=== PATIENT | male | born 1945 | race Caucasian/White ===

== ENCOUNTER 2018-04-01 15:46 | Inpatient (IN) | payer OTHER ==
[~2018-04-01] VITALS: Ht 170.2 cm; Wt 88.0 kg
[2018-04-01 15:52] VITALS: BP 123/68
[2018-04-01] MEDS ORDERED: NAMENDA 5 MG TAB5 M1 PO (15:59)
[2018-04-01] MEDS ORDERED: LIPITOR 20 MG T20 M1 PO (15:59)
[2018-04-01] MEDS ORDERED: VALSARTAN-HCTZ1 EAC2 PO (15:59)
[2018-04-01] MEDS ORDERED: B12INJ IM (16:00)
[2018-04-01] MEDS ORDERED: ASPIR 8181 MG PO (16:00)
[2018-04-01 16:34] LABS: HEMATOCRIT 41.5 % (42.0-52.0); HEMOGLOBIN 13.9 gm/dL (14.0-18.0); MCH 28.6 pg (26.0-34.0); MCHC 33.4 g/dL (28.0-37.0); MCV 85.5 fL (80.0-100.0); MPV 7.1 fl. (7.2-11.1); NUCLEATED RBCS 0 /100WBC; PLATELET COUNT* 330 thou/uL (150-400); RBC 4.85 mil/uL (4.50-6.00); RDW-CV 14.4 % (10.5-14.5); WBC 12.8 thou/uL (4.0-11.0)
[2018-04-01 16:42] LABS: ANION GAP 8 mmol/L (7-16); BUN 11 mg/dL (7-18); CHLORIDE 96 mmol/L (98-107); CO2 30 mmol/L (21-32); CREATININE 1.1 mg/dL (0.6-1.3); GLUCOSE 127 mg/dL (70-99); POTASSIUM 3.6 mmol/L (3.5-5.1); SODIUM 134 mmol/L (136-145)
[2018-04-01 16:47] LABS: ALBUMIN 3.4 g/dL (3.4-5.0); ALKALINE PHOSPHATASE 76 U/L (46-116); LIPASE 65 U/L (73-393); SGOT 18 U/L (15-37); SGPT 23 U/L (30-65); TOTAL BILIRUBIN 1.3 mg/dL (<0.1-1.0); TOTAL PROTEIN 7.1 g/dL (6.4-8.2); TROPONIN-I LEVEL <0.06 ng/mL (<0.06)
[2018-04-01 17:21] LABS: ABSOLUTE LYMPHOCYTES 0.6 thou/uL (0.8-5.3); ABSOLUTE NEUTROPHILS 11.1 thou/uL (1.6-8.1); PLATELET ESTIMATE ADEQUATE
[2018-04-01 19:49] LABS: URINE BILIRUBIN NEGATIVE (Negative); URINE BLOOD NEGATIVE (Negative); URINE CLARITY CLEAR; URINE COLOR YELLOW; URINE GLUCOSE-RANDOM NEGATIVE (Negative); URINE KETONES NEGATIVE (Negative); URINE LEUKOCYTES-REFLEX NEGATIVE (Negative); URINE NITRITE-REFLEX NEGATIVE (Negative); URINE PROTEIN NEGATIVE (Negative); URINE UROBILINOGEN 0.2 E.U./dl (0.2-1.0)
[2018-04-01 20:55] VITALS: BP 117/74
[2018-04-01 20:56] VITALS: BP 121/68
[2018-04-02] VITALS: BP 111/68
[2018-04-02 04:00] VITALS: BP 84/50
[2018-04-02 05:00] LABS: ABSOLUTE BASOPHILS 0.1 thou/uL (0.0-0.2); ABSOLUTE LYMPHOCYTES 0.8 thou/uL (0.8-5.3); ABSOLUTE MONOCYTES 0.7 thou/uL (0.0-1.2); ABSOLUTE NEUTROPHILS 10.2 thou/uL (1.6-8.1); BASOPHILS 0.4 %; EOSINOPHILS 0.1 %; HEMATOCRIT 34.8 % (42.0-52.0); LYMPHOCYTES 6.8 %; MCH 29.4 pg (26.0-34.0); MCHC 34.1 g/dL (28.0-37.0); MCV 86.3 fL (80.0-100.0); MONOCYTES 5.6 %; MPV 7.3 fl. (7.2-11.1); NUCLEATED RBCS 0 /100WBC; POLYS 87.1 %; RBC 4.03 mil/uL (4.50-6.00); RDW-CV 14.7 % (10.5-14.5); WBC 11.8 thou/uL (4.0-11.0)
[2018-04-02 05:05] LABS: HEMOGLOBIN 11.8 gm/dL (14.0-18.0); PLATELET COUNT* 254 thou/uL (150-400)
[2018-04-02 05:44] LABS: ALBUMIN 2.8 g/dL (3.4-5.0); CALCIUM 8.1 mg/dL (8.5-10.1); CREATININE 1.1 mg/dL (0.6-1.3); DIRECT BILIRUBIN 0.3 mg/dL (<0.1-0.3); POTASSIUM 3.6 mmol/L (3.5-5.1); TOTAL BILIRUBIN 2.6 mg/dL (<0.1-1.0); TOTAL PROTEIN 5.4 g/dL (6.4-8.2)
[2018-04-02 08:15] VITALS: BP 103/63
[2018-04-02 11:06] LABS: APTT 37.3 Seconds (25.0-31.3); INR 1.2; PROTIME 12.7 Seconds (9.20-11.50)
--- NOTE | 2018-04-02 13:45 | EKG ---
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
[2018-04-02 20:00] VITALS: BP 116/69
[2018-04-03] VITALS: BP 128/71
[2018-04-03 05:26] LABS: HEMATOCRIT 31.3 % (42.0-52.0); HEMOGLOBIN 10.6 gm/dL (14.0-18.0); MCH 29.7 pg (26.0-34.0); MCV 87.4 fL (80.0-100.0); MPV 7.5 fl. (7.2-11.1); RBC 3.58 mil/uL (4.50-6.00); RDW-CV 14.7 % (10.5-14.5); WBC 9.2 thou/uL (4.0-11.0)
[2018-04-03 06:08] LABS: ALBUMIN 2.2 g/dL (3.4-5.0); CALCIUM 7.9 mg/dL (8.5-10.1); CREATININE 1.1 mg/dL (0.6-1.3); DIRECT BILIRUBIN 0.4 mg/dL (<0.1-0.3); POTASSIUM 3.4 mmol/L (3.5-5.1); TOTAL BILIRUBIN 1.9 mg/dL (<0.1-1.0); TOTAL PROTEIN 5.5 g/dL (6.4-8.2)
[2018-04-03 08:00] VITALS: BP 125/73
[2018-04-03 12:00] VITALS: BP 138/78
[2018-04-03 14:08] LABS: HEPATITIS B SURFACE AG Negative (Negative)
[2018-04-03 14:13] VITALS: BP 138/78
[2018-04-03 14:16] VITALS: BP 141/85
[2018-04-03 20:00] VITALS: BP 161/87
[2018-04-04] VITALS: BP 160/99
[2018-04-04 05:12] LABS: HEMOGLOBIN 10.7 gm/dL (14.0-18.0); MCH 30.2 pg (26.0-34.0); MCHC 34.4 g/dL (28.0-37.0); MCV 87.8 fL (80.0-100.0); MPV 7.7 fl. (7.2-11.1); RBC 3.54 mil/uL (4.50-6.00); RDW-CV 14.9 % (10.5-14.5); WBC 6.9 thou/uL (4.0-11.0)
[2018-04-04 05:18] LABS: ALBUMIN 2.3 g/dL (3.4-5.0); CALCIUM 8.3 mg/dL (8.5-10.1); POTASSIUM 3.8 mmol/L (3.5-5.1); TOTAL BILIRUBIN 1.3 mg/dL (<0.1-1.0); TOTAL PROTEIN 5.9 g/dL (6.4-8.2)
[2018-04-04 09:00] VITALS: BP 135/94
--- NOTE | 2018-04-04 11:17 | OP ---
[facility] [address] [place] [address] OPERATIVE REPORT Name: ABNER RODRIGUEZ Room: [address] IN .R.#: [id number] Admission: 04/01/18 Attend Phys: Taiwo Gaines MD Discharge: Date of : 47 Report #: [id number] THIS REPORT FOR: //name// CC: Taiwo [facility] DATE OF SERVICE: 04/03/2018 PREOPERATIVE DIAGNOSES: Acute cholecystitis with cholelithiasis with elevated liver enzymes. POSTOPERATIVE DIAGNOSES: Acute cholecystitis with cholelithiasis with elevated liver enzymes with possible gangrenous cholecystitis. FINDINGS: Gallbladder was enrobed in omental tissue. There was a very thickened wall with a rind. There was an area of bile outside the gallbladder, which could be a contained perforation. IOC revealed patent ducts without obstruction. SURGEON: Breonna Barber DO. COSURGEON: Gerard Tsai, PGY-3. PIGGYBACK CLERK: Billy Hess DO, PGY-2. PROCEDURE PERFORMED: Laparoscopic cholecystectomy with intraoperative cholangiogram and surgeon interpretation of images. ANESTHESIA: General endotracheal and local. ESTIMATED BLOOD LOSS: 20 mL. DRAINS: 15-Slovak RO drain in the right upper quadrant. SPECIMENS: Gallbladder. COMPLICATIONS: None. CONDITION: Stable. DISPOSITION: PACU to the floor. HISTORY OF PRESENT ILLNESS: The patient is a very pleasant 72-year-old gentleman who presented to the ER with a complaint of right upper quadrant abdominal pain of several weeks' duration. He was found to have an elevated white count and elevated liver enzymes. CT and ultrasound were concerning for [facility] [address] [place] [address] OPERATIVE REPORT Name: ABNER RODRIGUEZ Room: [address] IN [facility].#: [id number] Admission: 04/01/18 Attend Phys: Taiwo Gaines MD Discharge: Date of : 47 Report #: [id number] acute cholecystitis. Due to his elevated liver enzymes, he also underwent an MRCP, which did show patent ducts without obstruction. He was then consented for laparoscopic cholecystectomy with IOC. Risks discussed included bleeding, infection, pain, scar formation, injury to bowel, liver or bile duct, hernia at the incision sites, need for an open procedure and risks of general anesthesia. The patient understood these risks and elected to proceed. DESCRIPTION OF PROCEDURE: The patient was brought to the operating room. He was laid supine on the operating room table. SCDs were placed on bilateral lower extremities. The patient was already on antibiotics in the perioperative period. General endotracheal anesthesia was induced by anesthesia without difficulty. Abdomen was prepped and draped in standard sterile fashion. Timeout was performed to verify patient and procedure. A 10 mL of 0.5% Marcaine were injected in the infraumbilical area. Incision was made with 11 blade. Cautery was used for hemostasis. S retractors were used to visualize the fascia. Fascia was grasped and elevated between 2 Kochers. Fascia was incised using cautery. Peritoneum was bluntly entered using a Jeanne clamp. Finger was introduced into the abdomen to assure that there were no susana-incisional adhesions, none were identified. Two stitches of 0 Vicryl placed on the fascia. Rosalie trocar was introduced and secured with 0 Vicryl stitches. Abdomen was insufflated. The patient was placed head up and tilted left side down. Camera was introduced and a brief anterior abdominal exploration was undertaken with findings of dense omental adhesions over the liver edge, gallbladder could not even be visualized. Stomach was also quite distended. An 11 mm trocar was introduced in the subxiphoid area as well as two 5 mm trocars in the right upper quadrant. The edge of the scarred down omentum was gently grasped and retracted towards the patient's feet. Then, using a combination of very gentle blunt dissection and cautery dissection, I slowly removed the omental adhesions until the gallbladder could finally be visualized. The gallbladder was contracted and very thickened and had surrounding rind. We were finally able to get a grasp on the gallbladder and gently elevated and the remainder of the omental adhesions were taken down with blunt dissection. An aspiration needle was introduced, but only about 5 mL of thick bile could be aspirated, but it did assist us with better retraction of the gallbladder. The triangle of Calot was easily visualized. The tissue overlying the triangle of Calot was gently stripped away using the suction transportation equipment painter. The duct was then identified. It was circumferentially dissected free using a [place] dissector. The artery was identified just lateral to it. The artery was then also circumferentially dissected free using the [place] dissector. Common bile duct could be seen below us. [place] clamp was then introduced into the field and the neck of the gallbladder was grasped. Cholangiogram catheter was easily introduced into the cystic duct. It flushed easily. The patient was placed supine and C-arm was brought into the field. Intraoperative cholangiogram was then performed revealing patent cystic duct and common bile ducts as well as the hepatic radicals. Contrast promptly flowed into the duodenum. There was no sign of any stricture or obstruction. Of note, there was some contrast, which refluxed into [facility] [address] [place] [address] OPERATIVE REPORT Name: ABNER RODRIGUEZ Room: [address] IN [facility]#: [id number] Admission: 04/01/18 Attend Phys: Taiwo Gaines MD Discharge: Date of : 47 Report #: [id number] the pancreatic duct. Cholangiogram catheter was then removed. The patient was then placed head up and tilted left side down. The duct was doubly clipped and ligated. Artery was doubly clipped and ligated. Specimen was then removed from the liver bed utilizing cautery with quite a bit of difficulty secondary to a very inflamed hepatic plate. At one point, we did identify an area of what appeared to be bile outside the gallbladder, which could be a contained perforation. This area was suctioned away. Specimen was then placed within an EndoCatch bag. Liver bed was inspected. There were several small areas of bleeding, which were easily controlled with cautery. Clips were inspected. They appeared to be intact. There was no bleeding or leakage noted from the area of the clips. Right upper quadrant was then copiously irrigated until clear. A piece of Surgicel was placed over the inflamed liver bed. A 15-Slovak RO drain was introduced through the most lateral of the 5 mm ports and placed in the right upper quadrant. Remainder of our trocars were then removed under direct visualization. There was no bleeding noted from the peritoneum. Abdomen was then completely desufflated. Rosalie trocar was removed and EndoCatch bag was removed with the specimen intact. Kochers were then placed on the fascia of the infraumbilical port. Previously placed 0 Vicryl stitch was removed and 0 Vicryl stitch was placed in qztvso-by-jffaw fashion with excellent approximation of the fascia. An additional 10 mL of 0.5% Marcaine were injected in the fascia. All wounds were then closed with 4-0 Monocryl. The drain was sutured into place using 2-0 nylon. A total of 30 mL of 0.5% Marcaine were used to anesthetize the wounds. Wounds were then cleansed and covered with Mastisol, Steri-Strips, 4 x 4's, and Tegaderm. The patient was then allowed to awaken from anesthesia, was extubated and transferred to the recovery room with no further difficulties. Counts were correct x 2 at the conclusion of the case. <ELECTRONICALLY SIGNED> By: Breonna Barber DO 04/04/18 1117 1716 [id number] Barber DO /nt
[2018-04-04 16:00] VITALS: BP 127/76
[2018-04-04 20:00] VITALS: BP 117/73
[2018-04-05] VITALS: BP 125/74
[2018-04-05 09:00] VITALS: BP 148/78
[2018-04-05 12:38] VITALS: BP 148/78
[2018-04-05] MEDS ORDERED: NORCO 5-325 TA1 EACH PO (12:49)
--- NOTE | 2018-04-07 13:06 | PATH ---
[facility] [address] [place] [address] PATHOLOGY RPT PROCEDURE Name: ABNER RODRIGUEZ Room: [address] IN M.R.#: [id number] Admission: 04/01/18 Date of : 47 Discharge: 04/05/18 Report #: [id number] Path Case #: [id number] [facility] Accession Number: [id number] . 01 Material submitted: . GALLBLADDER . 01 Clinical history: . Right upper quadrant pain Cholelithiasis, cholecystitis, acute gangrene . 02 Diagnosis: Gallbladder, cholecystectomy: - Acute and chronic cholecystitis with necrosis and focal acute abscess. - Cholelithiasis. - Cystic duct lymph node with moderate fatty change. (SKM:weston;04/07/2018) QMS/04/07/2018 . 02 Electronically signed: . Darnell Roberts MD, Pathologist NPI- [id number] . 01 Gross description: . The specimen is received in formalin, labeled "Lilly Abner, gallbladder" and consists of a previously opened gallbladder measuring 6.2 x 2.8 x 1.6 cm. The serosa is moreira-fofana with thick adhesions and exudate. The margin is inked black. The mucosa is fofana-brown, granular and hemorrhagic with a focal area of possible necrosis measuring 2.3 x 1.3 cm. Also present is a single black and smooth calculus measuring 1.1 x 0.8 cm. The wall ranges from 0.1-0.6 cm. Located adjacent the neck aspect is a lymph node candidate measuring 0.7 x 0.5 cm. Jewelry Sorter sections are submitted in A1-A2 with the lymph node (bisected) in A2. (SDY; 04/05/2018) SYU/SYU . 02 Pathologist provided ICD-10: K80.12 . 02 CPT . 908707 Specimen Comment: A courtesy copy of this report has been sent to Specimen Comment: [phone], . Specimen Comment: Report sent to and Performed at: [address], [place], [place] [id number] MD Sebas Parks MD Phone: [phone] [place] [address] PATHOLOGY RPT PROCEDURE Name: ABNER RODRIGUEZ Room: [address] IN M.R.#: [id number] Admission: 04/01/18 Date of : 47 Discharge: 04/05/18 Report #: [id number] Path Case #: [id number] Performed at: 02 [facility] [place] [address], [place], [place] [id number] MD Scott Pittman MD Phone: [phone]
== END 2018-04-05 13:10 | disposition home or self-care (01) | DRG 854 ==
LOC: M.ERS 15:46 → M.TBA-ER 18:49 → M.2W 18:49 → M.ORTHSURG 04-05 07:37
PROVIDERS: Family Medicine; Internal Medicine; Surgery
PROC: BF141ZZ Fluoroscopy of Gallbladder, Bile Ducts and Pancreatic Ducts using Low Osmolar Contrast (ICD-10-PCS; principal; 2018-04-03)
PROC: 0DNU4ZZ Release Omentum, Percutaneous Endoscopic Approach (ICD-10-PCS; principal; 2018-04-03)
PROC: 0FT44ZZ Resection of Gallbladder, Percutaneous Endoscopic Approach (ICD-10-PCS; principal; 2018-04-03)
DX: A41.9 Sepsis, unspecified organism (principal); E44.1 Mild protein-calorie malnutrition; K80.00 Calculus of gallbladder with acute cholecystitis without obstruction; E87.1 Hypo-osmolality and hyponatremia; G47.33 Obstructive sleep apnea (adult) (pediatric); E87.8 Other disorders of electrolyte and fluid balance, not elsewhere classified; K82.A1 Gangrene of gallbladder in cholecystitis; R41.3 Other amnesia; E78.00 Pure hypercholesterolemia, unspecified; E78.5 Hyperlipidemia, unspecified; I10 Essential (primary) hypertension; Z85.46 Personal history of malignant neoplasm of prostate; Z90.79 Acquired absence of other genital organ(s); Z68.30 Body mass index [BMI] 30.0-30.9, adult; Z79.82 Long term (current) use of aspirin; Z79.899 Other long term (current) drug therapy